=== PATIENT | female | born 1965 | race African-American/Black ===

== ENCOUNTER 2023-05-13 08:48 | Outpatient (REF) | payer MEDICAID, SELFPAY ==
--- NOTE | ~2023-05-13 | XR_ITS ---
EXAMINATION: XR HAND, RIGHT CLINICAL INFORMATION: Right 3rd MCP joint tenderness and swelling. 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 Right 3rd MCP joint tenderness and swelling a year ago, had shot for trigger finger. Now month ago swelling with burning sensation. Got cold/stiff during cold weather recently. COMPARISON: None available. TECHNIQUE: Four views of the right hand. FINDINGS: Moderate degenerative changes in the first carpometacarpal joint with joint space narrowing and hypertrophic change. Extensive vascular calcifications. Marked degenerative changes in the 5th DIP joint with hypertrophic change and joint space loss. There is adjacent soft tissue swelling. XR/XR hand RT min 3V IMPRESSION: 1. Moderate degenerative changes 1st carpometacarpal joint. 2. Marked degenerative changes 5th DIP joint. 3. Extensive vascular calcifications. 4. Recommend follow up imaging in 10-14 days if fracture is suspected. This study was presented today, 05/18/2023, for interpretation. Prompt priority results supplied at this time to the referring provider as requested by the provider.
== END 2023-05-13 08:49 | disposition home or self-care (01) ==
LOC: HO.HHCX 08:48
PROVIDERS: Visit Provider Internal Medicine
DX: M19.049 Primary osteoarthritis, unspecified hand (principal)
CPT/HCPCS: 73130